=== PATIENT | male | born 1955 | race Caucasian/White ===

== ENCOUNTER 2024-03-29 15:47 | Emergency (ER) | payer OTHER ==
[~2024-03-29] VITALS: Ht 172.7 cm; Wt 68.0 kg
[2024-03-29] MEDS ORDERED: ALBUTEROL FS 2.5 MG/3 ML VIAL.NEB ONE (16:17)
[2024-03-29] MEDS ORDERED: IPRATROPIUM NEB FS 0.5 MG/2.5 ML AMPUL.NEB ONE (16:17)
[2024-03-29 16:25] VITALS: O2SAT 96
[2024-03-29] MEDS: IPRATROPIUM NEB FS 0.5 MG/2.5 ML AMPUL.NEB NEB ONE (16:25)
[2024-03-29] MEDS: ALBUTEROL FS 2.5 MG/3 ML VIAL.NEB NEB ONE (16:25)
[2024-03-29 17:00] VITALS: O2SAT 100
[2024-03-29] MEDS ORDERED: NEBU1KIT3 MC (17:16)
[2024-03-29] MEDS ORDERED: ALBU2.5V13 NEB (17:16)
[2024-03-29 17:34] VITALS: BP 131/77; TEMP 98.3; O2SAT 100
== END 2024-03-29 17:34 | disposition home or self-care (01) ==
LOC: ER 16:00
DX: J44.9 Chronic obstructive pulmonary disease, unspecified (principal); R06.02 Shortness of breath; I10 Essential (primary) hypertension; F20.9 Schizophrenia, unspecified; Z59.00 Homelessness unspecified
CPT/HCPCS: 94799-TC